=== PATIENT | female | born 1960 | race Caucasian/White ===

== ENCOUNTER → 2018-11-02 | Outpatient (CLI) | payer OTHER ==
[2018-11-02 17:44] LABS: BLOOD UREA NITROGEN 13 MG/DL (7-18); CREATININE FOR GFR 0.73 MG/DL (0.55-1.30); GLOMERULAR FILTRATION RATE > 60.0 (>51)
== END ==
LOC: M LAB 16:11
PROVIDERS: ATTEND Neurological Surgery
DX: I10 Essential (primary) hypertension (principal)

== ENCOUNTER → 2024-04-12 | Outpatient (CLI) | payer BC | LOC: M WUC 11:37 | PROVIDERS: ATTEND Physician Assistant Medical | DX: M25.572 Pain in left ankle and joints of left foot (principal); M79.89 Other specified soft tissue disorders; M77.32 Calcaneal spur, left foot; M19.072 Primary osteoarthritis, left ankle and foot ==